=== PATIENT | male | born 1970 | race Caucasian/White ===

== ENCOUNTER 2023-10-13 18:35 | Emergency (ER) | payer OTHER, SELFPAY ==
[2023-10-13 18:42] VITALS: BP 135/109; PULSE 116; RESP 66; TEMP 37.1; O2SAT 99
--- NOTE | 2023-10-13 18:46 | NUR.NOTE ---
Cousin, Danis De Jesus; [phone], called stating can call for info if needed. Stated he is a vet, has PTSD, in pain, been drinking alsohol (wine) last few days, divorce 1 1/2 weeks ago, they have his meds. Will bring meds if we ask them to. Has been admitted 3 x in the last 2 years. Nursing Note:
[2023-10-13 19:12] VITALS: BP 154/79; PULSE 104; RESP 18; TEMP 37.1; O2SAT 96
--- NOTE | 2023-10-13 19:23 | ED.GENADUL_ITS ---
Discharge Plan Discharge Details Chief Complaint: PsychEval Primary Care Provider: Unknown,Unknown ED Provider: Yuri Parra [facility] General Date/Time Provider Initiated Documentation: 10/13/23 18:47 . HPI Narrative: 53-year-old male history of service, recent divorce presents with suicidal ideation. Denies recent attempt at self-harm. No thoughts of harming others. Patient feeling overwhelmed and endorses self-medication with wine at home over the last couple of days. No history of alcohol withdrawal. General Stated Complaint: PsychEval GINNA: 2 Exam Narrative Exam Narrative: Alert oriented interactive Speaking full sentences following secretions normal voice No respiratory distress speaking full sentences Appears anxious No tremors, moving all extremities ambulatory speaking full senses cranial nerves intact Course Vital Signs Vital signs: Vital Signs Temperature 37.1 C 10/13/23 18:42 Pulse 116 H 10/13/23 18:42 Respiratory Rate 66 H 10/13/23 18:42 Blood Pressure 135/109 H 10/13/23 18:42 Pulse Oximetry 99 10/13/23 18:42 Temperature 37.1 C 10/13/23 19:12 Temperature Source Tympanic 10/13/23 19:12 Pulse 104 H 10/13/23 19:12 Respiratory Rate 18 10/13/23 19:12 Blood Pressure 154/79 H 10/13/23 19:12 Blood Pressure Position Sitting 10/13/23 18:42 Pulse Oximetry 96 10/13/23 19:12 Oxygen Delivery Method Room Air 10/13/23 19:12 Oxygen Flow Rate 0 10/13/23 19:12 Pain Level 0 10/13/23 18:42 Medical Decision Making 53-year-old male history of service, recent divorce presents with suicidal ideation in setting of feeling overwhelmed. Endorses self-medication with alcohol. Denies history of alcohol withdrawal. Noted to be tachycardic and hypertensive arrival, initial respiratory rate inaccurate, repeat vitals more consistent with history and physical. Alert oriented interactive no respiratory distress, no signs of tremor or neurologic disturbance no external signs of trauma no signs of intoxication. Patient does appear anxious. Active suicidal ideation no attempts at self-harm currently. Will initiate screening with [facility] human services will recommend inpatient care given level of distress. Low-dose benzodiazepine for anxiolysis. Patient will be moved to his own B. Will attempt to obtain urine for urine drug screen. 21: 11 patient was comfortably no acute distress. Evaluated by [facility] human services who agrees that patient would benefit from inpatient psychiatric treatment, they will work on referrals. Quality:SDOH Health Related Social Needs: No Data to Display [facility] Social History Smoking risk assessment performed?: No
[2023-10-13] MEDS: LORazepam 1 MG TAB PO (19:25)
[2023-10-13 19:49] LABS: *AMPHETAMINES SCREEN URINE Negative (Negative); *BARBITURATES SCREEN URINE Negative (Negative); *BENZODIAZEPINES SCREEN URINE Negative (Negative); Cannabinoids THC Negative (Negative); Cocaine Screen,Urine Negative (Negative); METHADONE URINE SCREEN Negative (Negative); OPIATES URINE SCREEN Negative (Negative)
[2023-10-13 19:50] LABS: Tricyclic Antidepressants Negative (Negative)
--- NOTE | 2023-10-13 22:36 | PDOC.MHCN ---
Date of service: 10/13/23 Time of Service: 20:52 PHQ-9 Over the last 2 weeks, how often have you been bothered by any of the following problems? 1. Little interest or pleasure in doing things: nearly every day 2. Feeling down, depressed, or hopeless: nearly every day 3. Trouble falling or staying asleep, or sleeping too much: nearly every day 4. Feeling tired or having little energy: nearly every day 5. Poor appetite or overeating: nearly every day 6. Feeling bad about yourself - or that you are a failure or have let yourself and your family down: more than half the days 7. Trouble concentrating on things, such as reading the newspaper or watching television: more than half the days 8. Moving or speaking so slowly that other people could have noticed? - Or the opposite - being so fidgety or restless that you have been moving around a lot more than usual: not at all 9. Thoughts that you would be better off or of hurting yourself in some way: nearly every day Total score: 22 If you checked off any problems, how difficult have these problems made it for you to do your work, take care of things at home, or get along with other people?: very difficult PHQ-9 Results: Positive Source: Developed by Drs. Ld Harrison, Rosalina Baptiste, Christian Christian and colleagues, with an educational yanely from [employer] Suicide Severity Rate CSSRS Have you wished you were or wished you could go to sleep and not wake up?: Yes Have you actually had any thoughts of killing yourself?: Yes CSSRS2 Have you been thinking about how you might do this?: Yes Have you had these thoughts and had some intention of acting on them?: Yes Have you started to work out or worked out the details of how to kill yourself? Do you intend to carry out this plan?: Yes CSSRS3 Have you ever done anything, started to do anything or prepared to do anything to end your life?: Yes CSSRS4 Was this within the past three months?: No Screening Score Total Score: 6 Screening: Positive Mental Health Emergency Note Release [facility] release signed:: No Reason for Visit Arnav presents to [facility] after calling the [place] crisis line reporting he needed help In the last 2 weeks has the pt presented for ES prior to today?: Unknown Client Information Client is: New Well Housed: Yes Non Suicidal Self Injury Current: No History: No Safety Risk/Harm to Self or Others Current Ideation to Harm Self or Others: Yes to self. (Arnav reports he is having thoughts of ending his life via firearm ; Arnav has access to several firearms within his home) Intent: yes, has intent. Plan: yes,has a plan. History of suicide attempt: yes,history of suicide attempt reported. Details of previous suicide attempt: Arnav attempted to overdose 2 years ago Risk: Does risk to harm exist?: yes. Access to means: No. Risk: Moderate Risk Duty to warn indicated: No Asssessment/Mental Status Appearance: Unremarkable Attitude: Cooperative Behavior: Unremarkable Speech: Normal Affect: Cogruent with mood Mood: Stressed and Depressed Thought process: Unremarkable Hallucinations: No evidence Delusions: No evidence Attention: Unremarkable Perception: Not impaired Orientation: Fully orientated Memory: Intact Insight: Fair Judgement: Poor Neurovegetative Symptoms Sleep: No change Appetitie: Decrease Interests: Decrease Energy: Decrease Libido: Not applicable Substance Use: Do you use nicotine?: No Have you used substances in the last 7 days?: yes, Arnav reports he has been drinking alcohol every day but does not normally drink Additional Issues: Assaultive/Threatening Behavior: No Medical Concerns: No Client engaged in active self harm w/weapon: No Threatening to run away: No Child reported abuse/neglect: No Voluntarily presenting for services: Yes Domestic violence is a concern: No Extreme Psychosis or extreme behavior is present: No Impression Arnav presented to [facility] [place]. Arnav reports he is living in [place] right now but is originally from [place]. Arnav reports he recently got a divorce and has not been doing well. Arnav reports his cup is full and he cannot take it anymore. Arnav reports history of PTSD diagnosis and all day he has intrusive thoughts that take over. Arnav reports endorsing suicidal ideation and thought of harming himself today, and reports if he did not come to the hospital he would have attempted to harm himself. When asked if he has a plan he shared at home it would be easy due to his access to firearms but in the hospital he does not have a plan. 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 Arnav reports two years ago he attempted to harm himself via overdosing on pills which he reports was a cry for help. Arnav reports after that he went to inpatient treatment in [place]. Arnav reports a diagnosis of PTSD, anxiety, and depression. Arnav takes all his medications as prescribed but reports he thinks only some of them are working. 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 Arnav is seeking voluntary inpatient treatment at this time to decrease his suicidal ideation. Plan/Disposition Recommended Disposition: Hospitalization facilities contacted. Plan: Arnav will remain at [facility] until a voluntary treatment bed can be secured Person reported agreement to plan: Yes Reports/communication Outcome discussed with: ED/Personnel
[2023-10-14] MEDS: Acetaminophen 500 MG TAB (00:16)
[2023-10-14] MEDS: Calcium Carbonate *TUMS* 500 MG CHEW 1000 MG PO (00:16)
--- NOTE | 2023-10-14 03:38 | W.EDPROG ---
Date of service: 10/14/23 Time of Service: 03:38 Medical Decision Making Patient stable throughout the night, he did have some mild stomach irritation, he was given Tylenol and Tums which did relieve his symptoms. Med reconciliation was performed, and I have placed orders for his daily medications. Pending placement. Quality:[facility] Health Related Social Needs: No Data to Display Sign Out Sign Out Data: Sign Out Comment: SI, med cleared, voluntary, awaiting med rec for home meds, [facility] sending referrals for inpatient psych Last updated by Yuri Parra MD at 10/13/23 21:12 Discharge Plan Discharge Details Chief Complaint: PsychEval Primary Care Provider: Mariam,[facility] ED Provider: Isaac Bragg Home Meds and New Rx's Prescriptions: No Action mesalamine 1,200 mg PO DAILY venlafaxine 75 mg PO DAILY buspirone 10 mg PO BID losartan 25 mg tablet 25 mg PO DAILY fenofibrate 145 mg PO DAILY pregabalin 200 mg PO BID mirtazapine 30 mg tablet 30 mg PO DAILY prazosin 2 mg capsule 2 mg PO DAILY hydroxyzine HCl 10 mg tablet 10 mg PO TID PRN Jardiance 25 mg tablet 25 mg PO DAILY pantoprazole 40 mg tablet,delayed release (DR/EC) 40 mg PO DAILY
--- NOTE | 2023-10-14 07:17 | W.EDPROG ---
Date of service: 10/14/23 Time of Service: 07:17 Medical Decision Making Patient seeking voluntary placement for SI, no issues been reported on prior shift at signout, currently calm and cooperative with no acute complaints. Will continue to monitor until safe disposition plan. Quality:[facility] Health Related Social Needs: No Data to Display Sign Out Sign Out Data: Sign Out Comment: SI, med cleared, voluntary, awaiting med rec for home meds, [facility] sending referrals for inpatient psych Last updated by Yuri Parra MD at 10/13/23 21:12 Sign Out Comment: Depressed, suicidal, voluntary, med reconciliation completed and daily and home med orders have been placed. Pending placement for inpatient psychiatric facility. Last updated by Isaac Bragg DO at 10/14/23 03:40 Discharge Plan Discharge Details Chief Complaint: PsychEval Primary Care Provider: Mariam,Local ED Provider: Charles Tidwell Home Meds and New Rx's Prescriptions: No Action mesalamine 1,200 mg PO DAILY venlafaxine 75 mg PO DAILY buspirone 10 mg PO BID losartan 25 mg tablet 25 mg PO DAILY fenofibrate 145 mg PO DAILY pregabalin 200 mg PO BID mirtazapine 30 mg tablet 30 mg PO DAILY prazosin 2 mg capsule 2 mg PO DAILY hydroxyzine HCl 10 mg tablet 10 mg PO TID PRN Jardiance 25 mg tablet 25 mg PO DAILY pantoprazole 40 mg tablet,delayed release (DR/EC) 40 mg PO DAILY
[2023-10-14] MEDS: busPIRone 5 MG TAB 10 MG PO ×2 (09:21→19:19)
[2023-10-14] MEDS: Empaglifozin 25 MG TAB PO (09:21)
[2023-10-14] MEDS: Prazosin 1 MG CAP 2 MG PO (09:21)
[2023-10-14] MEDS: Mesalamine 1.2 GM TABCR PO (09:21)
[2023-10-14] MEDS: Pantoprazole 40 MG TABCR PO (09:21)
[2023-10-14] MEDS: Losartan 25 MG TAB PO (09:21)
[2023-10-14] MEDS: Fenofibrate, Micronized 145 MG TAB PO (09:21)
[2023-10-14 09:22] VITALS: BP 134/88; PULSE 97; RESP 18; TEMP 36.7; O2SAT 100
[2023-10-14] MEDS: Venlafaxine 75 MG CAPCR PO (09:22)
[2023-10-14] MEDS: Pregabalin 100 MG CAP 200 MG PO (09:22)
[2023-10-14] MEDS: chlordiazePOXIDE 25 MG CAP 50 MG PO (13:09)
--- NOTE | 2023-10-14 14:36 | CMSP_ITS ---
Care Management Safety Plan Status Status: Voluntary Reason for Wait Reason for Wait: Inpatient Admission Safety Plan Safety Plan: VOLUNTARY FOR INPATIENT PSYCHIATRIC STABILIZATION.? Per Crisis screener, Anabel, she is [facility] with the [facility] to provide updated [facility] information. [facility] are reviewing for admission. Safety plan has been established with patient, and care team, to adhere to p atient goals, identify restrictions based on behavioral status, address nutrition, and determine allowed personal belongings, tools for hygiene and personal care. Determine level of activity including ambulation, level of supervision, visitors, and determine privileges based on behaviors and level of engagement by pt. VOLUNTARY SAFETY PLAN: 1. Will remain on suicide precautions, in paper clothes 2. Will remain in Zone B under direct supervision of one-on-one staff at all times provided by [employer]; RUBIA, INNOVATION MANAGER feed crusher operator. 3. May have paper cups, plates, finger foods as well as a cardboard spoon with which to eat meals. 4. Follow [facility] Management of the Admitted Behavioral Health Patient policy. 5. Shower available in Zone B without restriction. 6. Personal belongings-soft items permitted at RN discretion. 7. Visitors-permitted at RN discretion. 8. Activities: soft cart items approved per RN discretion. 9.? Bathroom available in Zone B without restriction. 10. Phone: limited to [facility] cordless phone at RN discretion. Due to VOLUNTARY status, if patient wishes to leave [facility], staff will contact [facility] Crisis Screener ([phone]) and Signal System Testing Maintainer ([phone]) as soon as possible. In the event of elopement, notify [facility] Police ([phone]). Patient is currently voluntarily at [facility] and seeking inpatient admission when a bed becomes available. [facility] Frontline Bilingual Teacher Aide will continue seeking placement. Please contact the Signal System Testing Maintainer ([phone]) and [facility] Bilingual Teacher Aide ([phone]) for any needed changes in the Safety Plan. Safety plan has been provided to interdepartmental care team. .
--- NOTE | 2023-10-14 14:36 | PDOC.CMSAFE ---
Care Management Safety Plan Status Status: Voluntary Reason for Wait Reason for Wait: Inpatient Admission Safety Plan Safety Plan: VOLUNTARY FOR INPATIENT PSYCHIATRIC STABILIZATION.? Per Crisis screener, Anabel, she is in contact with the [facility] to provide updated [facility] information. [facility] are reviewing for admission. Safety plan has been established with patient, and care team, to adhere to patient goals, identify restrictions based on behavioral status, address nutrition, and determine allowed personal belongings, tools for hygiene and personal care. Determine level of activity including ambulation, level of supervision, visitors, and determine privileges based on behaviors and level of engagement by pt. VOLUNTARY SAFETY PLAN: 1. Will remain on suicide precautions, in paper clothes 2. Will remain in Zone B under direct supervision of one-on-one staff at all times provided by [employer]; RUBIA, CANDY POLISHER portfolio specialist. 3. May have paper cups, plates, finger foods as well as a cardboard spoon with which to eat meals. 4. Follow [facility] Management of the Admitted Behavioral Health Patient policy. 5. Shower available in Zone B without restriction. 6. Personal belongings-soft items permitted at RN discretion. 7. Visitors-permitted at RN discretion. 8. Activities: soft cart items approved per RN discretion. 9.? Bathroom available in Zone B without restriction. 10. Phone: limited to [facility] cordless phone at RN discretion. Due to VOLUNTARY status, if patient wishes to leave [facility], staff will contact [facility] Crisis Screener ([phone]) and Golf Shoe Spike Assembler ([phone]) as soon as possible. In the event of elopement, notify [facility] Police ([phone]). Patient is currently voluntarily at [facility] and seeking inpatient admission when a bed becomes available. [facility] Frontline Supervisor [employer] will continue seeking placement. Please contact the Golf Shoe Spike Assembler ([phone]) and [facility] Supervisor [employer] ([phone]) for any needed changes in the Safety Plan. Safety plan has been provided to interdepartmental care team. .
--- NOTE | 2023-10-14 16:11 | NUR.NOTE ---
1537 declined for [facility] and [facility] due to lack of capacity. Nursing Note:
[2023-10-14] MEDS: Dexamethasone 10 MG/ML VIAL PO (19:19)
[2023-10-14] MEDS: diphenhydrAMINE 25 MG CAP PO (19:19)
[2023-10-14] MEDS: Mirtazapine 15 MG TAB 30 MG PO (19:19)
--- NOTE | 2023-10-14 23:23 | ED.PROG_ITS ---
Date of service: 10/14/23 Time of Service: 23:23 Medical Decision Making Patient was given dexamethasone and Benadryl for superficial rash to chest and umbilicus. No respiratory compromise nausea vomiting or presyncopal sensation to suggest anaphylaxis. Likely contact dermatitis versus urticaria. Patient resting notably no acute distress. Quality:[facility] Health Related Social Needs: No Data to Display Sign Out Sign Out Data: Sign Out Comment: SI, med cleared, voluntary, awaiting med rec for home meds, [facility] sending referrals for inpatient psych Last updated by Yuri Parra MD at 10/13/23 21:12 Sign Out Comment: Depressed, suicidal, voluntary, med reconciliation completed and daily and home med orders have been placed. Pending placement for inpatient psychiatric facility. Last updated by Isaac Bragg DO at 10/14/23 03:40 Sign Out Comment: si/depression, voluntary. Did have some anxiety/mild alcohol withdrawal symptoms, responded well to 50mg oral librium Last updated by Charles Tidwell MD at 10/14/23 16:18 Discharge Plan Discharge Details Chief Complaint: PsychEval Primary Care Provider: Mariam,Local ED Provider: Yuri Parra Home Meds and New Rx's Prescriptions: No Action mesalamine 1,200 mg PO DAILY venlafaxine 75 mg PO DAILY buspirone 10 mg PO BID losartan 25 mg tablet 25 mg PO DAILY fenofibrate 145 mg PO DAILY pregabalin 200 mg PO BID mirtazapine 30 mg tablet 30 mg PO DAILY prazosin 2 mg capsule 2 mg PO DAILY hydroxyzine HCl 10 mg tablet 10 mg PO TID PRN Jardiance 25 mg tablet 25 mg PO DAILY pantoprazole 40 mg tablet,delayed release (DR/EC) 40 mg PO DAILY
--- NOTE | 2023-10-15 03:21 | W.EDPROG ---
Date of service: 10/15/23 Time of Service: 07:34 Medical Decision Making Patient seeking voluntary placement for depression and SI, no issues reported on prior shift and currently calm and cooperative without acute complaints. Will continue to monitor until safe disposition found Quality:[facility] Health Related Social Needs: No Data to Display Sign Out Sign Out Data: Sign Out Comment: SI, med cleared, voluntary, awaiting med rec for home meds, [facility] sending referrals for inpatient psych Last updated by Yuri Parra MD at 10/13/23 21:12 Sign Out Comment: Depressed, suicidal, voluntary, med reconciliation completed and daily and home med orders have been placed. Pending placement for inpatient psychiatric facility. Last updated by Isaac Bragg DO at 10/14/23 03:40 Sign Out Comment: si/depression, voluntary. Did have some anxiety/mild alcohol withdrawal symptoms, responded well to 50mg oral librium Last updated by Charles Tidwell MD at 10/14/23 16:18 Sign Out Comment: SI, voluntary, awaiting placement; dex and benadryl given for superficial rash on chest and abd, resting comfortably, no withdrawal symptoms Last updated by Yuri Parra MD at 10/14/23 23:28 Sign Out Comment: Suicidal ideations, awaiting placement. No interventions throughout the night. Last updated by Isaac Bragg DO at 10/15/23 03:22 Discharge Plan Discharge Details Chief Complaint: PsychEval Primary Care Provider: Mariam,[facility] ED Provider: Charles Tidwell Home Meds and New Rx's Prescriptions: No Action mesalamine 1,200 mg PO DAILY venlafaxine 75 mg PO DAILY buspirone 10 mg PO BID losartan 25 mg tablet 25 mg PO DAILY fenofibrate 145 mg PO DAILY pregabalin 200 mg PO BID mirtazapine 30 mg tablet 30 mg PO DAILY prazosin 2 mg capsule 2 mg PO DAILY hydroxyzine HCl 10 mg tablet 10 mg PO TID PRN Jardiance 25 mg tablet 25 mg PO DAILY pantoprazole 40 mg tablet,delayed release (DR/EC) 40 mg PO DAILY
[2023-10-15] MEDS: Venlafaxine 75 MG CAPCR PO (09:40)
[2023-10-15] MEDS: Fenofibrate, Micronized 145 MG TAB PO (09:40)
[2023-10-15] MEDS: Pregabalin 100 MG CAP 200 MG PO (09:40)
[2023-10-15] MEDS: Empaglifozin 25 MG TAB PO (09:40)
[2023-10-15] MEDS: Mesalamine 1.2 GM TABCR PO (09:40)
[2023-10-15] MEDS: Prazosin 1 MG CAP 2 MG PO (09:40)
[2023-10-15] MEDS: Pantoprazole 40 MG TABCR PO (09:40)
[2023-10-15] MEDS: Losartan 25 MG TAB PO (09:40)
[2023-10-15] MEDS: busPIRone 5 MG TAB 10 MG PO (09:40)
[2023-10-15 09:47] VITALS: BP 146/70; PULSE 115; TEMP 36.4; O2SAT 100
--- NOTE | 2023-10-15 14:18 | NUR.NOTE ---
Nursing Note: Pt reported to zone b nurse that he would like to leave. Pt is currently voluntary- [facility] paged. Awaiting call back.
--- NOTE | 2023-10-15 14:49 | W.EDPROG ---
Date of service: 10/15/23 Time of Service: 14:49 Medical Decision Making Patient requesting to be discharged. States he is interested in trying around the car and go back to [place] where most of his family has. He currently has no SI and when I ask him and he is calm and cooperative. He is reevaluating S and they feel he is safe for discharge which I agree with, they will check in with him and he will return if he has any worsening symptoms. Quality:[facility] Health Related Social Needs: No Data to Display Sign Out Sign Out Data: Sign Out Comment: SI, med cleared, voluntary, awaiting med rec for home meds, [facility] sending referrals for inpatient psych Last updated by Yuri Parra MD at 10/13/23 21:12 Sign Out Comment: Depressed, suicidal, voluntary, med reconciliation completed and daily and home med orders have been placed. Pending placement for inpatient psychiatric facility. Last updated by Isaac Bragg DO at 10/14/23 03:40 Sign Out Comment: si/depression, voluntary. Did have some anxiety/mild alcohol withdrawal symptoms, responded well to 50mg oral librium Last updated by Charles Tidwell MD at 10/14/23 16:18 Sign Out Comment: SI, voluntary, awaiting placement; dex and benadryl given for superficial rash on chest and abd, resting comfortably, no withdrawal symptoms Last updated by Yuri Parra MD at 10/14/23 23:28 Sign Out Comment: Suicidal ideations, awaiting placement. No interventions throughout the night. Last updated by Isaac Bragg DO at 10/15/23 03:22 Discharge Plan Disposition Patient Disposition: Home Condition: Stable Discharge Details Clinical Impression: Depression Primary Care Provider: Mariam,Local ED Provider: Charles Tidwell Home Meds and New Rx's Prescriptions: Continued mesalamine 1,200 mg PO DAILY venlafaxine 75 mg PO DAILY buspirone 10 mg PO BID losartan 25 mg tablet 25 mg PO DAILY fenofibrate 145 mg PO DAILY pregabalin 200 mg PO BID mirtazapine 30 mg tablet 30 mg PO DAILY prazosin 2 mg capsule 2 mg PO DAILY hydroxyzine HCl 10 mg tablet 10 mg PO TID PRN Jardiance 25 mg tablet 25 mg PO DAILY pantoprazole 40 mg tablet,delayed release (DR/EC) 40 mg PO DAILY Discharge Instructions Instructions: Depression, Adult ED Additional Instructions: Follow-up with your primary care provider and mental health If you have worsening thoughts of self-harm return to the emergency department for reevaluation.
== END 2023-10-15 14:59 | disposition home or self-care (01) ==
PROVIDERS: Emergency Medicine; Emergency Provider Emergency Medicine
DX: R45.851 Suicidal ideations (principal); F41.9 Anxiety disorder, unspecified; R21 Rash and other nonspecific skin eruption; I10 Essential (primary) hypertension
CPT/HCPCS: 00123; 80307; 96127; 99284; J1100